=== PATIENT | male | born 1980 | race American Indian/Alaskan Native ===

== ENCOUNTER 2019-05-14 12:10 | Emergency (ER) | payer SELFPAY ==
[2019-05-14 12:26] VITALS: BP 114/74
--- NOTE | 2019-05-14 12:29 | Emergency Department Report ---
Blank Doc - Documentation Documentation: 38-year-old male that presents with fever, chills, and cough w/ congestion. This initial assessment/diagnostic orders/clinical plan/treatment(s) is/are subject to change based on patient's health status, clinical progression and re- assessment by fellow clinical providers in the ED. Further treatment and workup at subsequent clinical providers discretion. Patient/guardians urged not to elope from the ED as their condition may be serious if not clinically assessed and managed. Initial orders include: 1- Patient sent to [facility] for further evaluation and treatment 2- CXR
--- NOTE | 2019-05-14 12:52 | Emergency Department Report ---
- General Chief Complaint: Upper Respiratory Infection Stated Complaint: FLU SX Time Seen by Provider: 05/14/19 12:28 Source: patient Mode of arrival: Ambulatory Limitations: No Limitations - History of Present Illness Initial Comments: 38-year-old male presents to the ER today complaining of flulike symptoms. Patient states that his symptoms started 2 days ago. He reports productive cough of yellow sputum, sore throat, nasal congestion, headache, and generalized muscle aches. Denies any obvious ill contacts. Patient states that he has been taking Tylenol 3 for his pain without any relief. Has no nausea, vomiting, abdominal pain, diarrhea, chest pain or SOB or any other symptoms at this time. MD Complaint: cough, rhinorrhea, nasal congestion, other (myalgias) -: days(s) (2) Severity: moderate - Related Data Previous Rx's Medication Instructions Recorded Last Taken Type Benzonatate [Tessalon Perles] 100 mg PO Q8HR PRN #30 capsule 05/14/19 Unknown Rx Fexofenadine/Pseudoephedrine 1 each PO BID #20 tab.er.12h 05/14/19 Unknown Rx [Jazzy-D 12 Hour Tablet] Ketorolac [Toradol] 10 mg PO Q6H PRN #30 tablet 05/14/19 Unknown Rx Oseltamivir [Tamiflu] 75 mg PO BID #10 cap 05/14/19 Unknown Rx Allergies Allergy/AdvReac Type Severity Reaction Status Date / Time No Known Allergies Allergy Unverified 05/14/19 12:14 ED Review of Systems ROS: Stated complaint: FLU SX Other details as noted in HPI Comment: All other systems reviewed and negative Constitutional: denies: chills, fever ENT: throat pain, congestion Respiratory: cough. denies: orthopnea, shortness of breath, SOB with exertion, SOB at rest, stridor, wheezing Cardiovascular: denies: chest pain Gastrointestinal: denies: nausea, vomiting, diarrhea, constipation, hematemesis, hematochezia Genitourinary: denies: urgency, dysuria, frequency, hematuria Skin: denies: rash Neurological: headache ED Past Medical Hx - Past Medical History Previous Medical History?: No - Surgical History Past Surgical History?: No - Social History Smoking Status: Current Every Day Smoker Substance Use Type: Alcohol, Marijuana - Medications Home Medications: Home Medications Medication Instructions Recorded Confirmed Last Taken Type Benzonatate [Tessalon Perles] 100 mg PO Q8HR PRN #30 capsule 05/14/19 Unknown Rx Fexofenadine/Pseudoephedrine 1 each PO BID #20 tab.er.12h 05/14/19 Unknown Rx [Jazzy-D 12 Hour Tablet] Ketorolac [Toradol] 10 mg PO Q6H PRN #30 tablet 05/14/19 Unknown Rx Oseltamivir [Tamiflu] 75 mg PO BID #10 cap 05/14/19 Unknown Rx ED Physical Exam - General Limitations: No Limitations General appearance: alert, in no apparent distress, other (Mildly ill appearing) - Head Head exam: Present: atraumatic, normocephalic - Eye Eye exam: Present: normal appearance, PERRL, EOMI - Expanded ENT Exam Expanded TM/Canal exam: Effusion: Right TM, Left TM Mouth exam: Present: normal external inspection Throat exam: Positive: tonsillar erythema. Negative: tonsillomegaly, tonsillar exudate - Neck Neck exam: Present: lymphadenopathy. Absent: normal inspection, meningismus, full ROM - Respiratory Respiratory exam: Present: normal lung sounds bilaterally. Absent: respiratory distress, wheezes - Cardiovascular Cardiovascular Exam: Present: regular rate, normal rhythm, normal heart sounds - GI/Abdominal GI/Abdominal exam: Present: soft. Absent: tenderness - Extremities Exam Extremities exam: Present: full ROM - Back Exam Back exam: Present: full ROM - Neurological Exam Neurological exam: Present: alert, oriented X3, CN II-XII intact - Skin Skin exam: Present: intact ED Course Vital Signs 05/14/19 12:15 Temperature 100.0 F H Pulse Rate 81 Respiratory 19 Rate Blood Pressure 114/74 O2 Sat by Pulse 98 Oximetry ED Medical Decision Making - Radiology Data Radiology results: report reviewed Ordering Physician: TRACI SAWYER NP Date of Service: 05/14/19 Procedure(s): XR chest routine 2V Accession Number(s): [id number] cc: TRACI SAWYER NP Fluoro Time In Minutes: CHEST 2 VIEWS INDICATION / CLINICAL INFORMATION: Headache, fever and cough for one day. COMPARISON: None available. FINDINGS: SUPPORT DEVICES: None. HEART / MEDIASTINUM: The heart size and pulmonary vasculature are normal. LUNGS / PLEURA: No significant pulmonary or pleural abnormality. No pneumothorax. ADDITIONAL FINDINGS: No significant additional findings. IMPRESSION: No acute findings. There is no evidence of pneumonia. Signer Name: Gautam Mancini MD Signed: 05/14/2019 1:01 PM Workstation Name: [id number] Transcribed By: RT Dictated By: Gautam Mancini MD Electronically Authenticated By: Gautam Mancini MD Signed Date/Time: 05/14/19 130 DD/ 130 TD/TT: - Medical Decision Making Patient presents to ED c/o flu like symptoms. Patient mildly ill appearing but overall he is not toxic, appears well hydrated and he is no acute respiratory distress. He is alert, and in neurologically intact. Has a low-grade temperature of a bowel sounds overall normal. Given his symptoms, and clinical appearance, suspect that he likely has the flu. CXR negative. Discuss suspected diagnosis the patient, informed him that is a viral illness and could be flu. Typically has to run its course. Discussed Tamiflu risk and benefits with patient and cost, patient opted to get the medication. Recommend rest and lots of fluids. Recommend follow-up with primary care doctor. Patient understands to return to the ER if worse. Patient stable at time of discharge. Critical care attestation.: If time is entered above; I have spent that time in minutes in the direct care of this critically ill patient, excluding procedure time. ED Disposition Clinical Impression: Viral syndrome, Flu-like symptoms Disposition: DC-01 TO HOME OR SELFCARE Is pt being admited?: No Does the pt Need Aspirin: No Condition: Stable Instructions: Viral Syndrome in Children (ED) Additional Instructions: Recommend lots of rest, fluids, taking medications as prescribed. Recommend close f/u with PCP. Return to ED if worse. Prescriptions: Fexofenadine/Pseudoephedrine [Jazzy-D 12 Hour Tablet] 1 each PO BID #20 tab.er.12h Oseltamivir [Tamiflu] 75 mg PO BID #10 cap Benzonatate [Tessalon Perles] 100 mg PO Q8HR PRN #30 capsule PRN Reason: Cough Ketorolac [Toradol] 10 mg PO Q6H PRN #30 tablet PRN Reason: Pain Referrals: DAPHNEY FRIEDMAN MD [Staff Physician] - 3-5 Days Time of Disposition: 13:27
--- NOTE | 2019-05-14 13:05 | XRay Report ---
CHEST 2 VIEWS INDICATION / CLINICAL INFORMATION: Headache, fever and cough for one day. COMPARISON: None available. FINDINGS: SUPPORT DEVICES: None. HEART / MEDIASTINUM: The heart size and pulmonary vasculature are normal. LUNGS / PLEURA: No significant pulmonary or pleural abnormality. No pneumothorax. ADDITIONAL FINDINGS: No significant additional findings. IMPRESSION: No acute findings. There is no evidence of pneumonia. Signer Name: Gautam Mancini MD Signed: 05/14/2019 1:01 PM Workstation Name: [id number]
[2019-05-14] MEDS ORDERED: BUTALB/ACETAMINOPHEN/CAFFEINE TAB PO ONE (13:18)
[2019-05-14] MEDS ORDERED: CYCLOBENZAPRINE 10 MG TAB PO ONE (13:18)
[2019-05-14] MEDS ORDERED: IBUPROFEN 800 MG TAB PO ONE (13:19)
== END 2019-05-14 13:51 | disposition home or self-care (01) ==
LOC: ED 12:10
DX: J11.1 Influenza due to unidentified influenza virus with other respiratory manifestations (principal); B34.9 Viral infection, unspecified
CPT/HCPCS: 71046